=== PATIENT | female | born 1975 | race Caucasian/White ===

== ENCOUNTER 2018-02-02 14:55 | Emergency (ER) | payer OTHER ==
[~2018-02-02] VITALS: Ht 167.6 cm; Wt 68.0 kg
[~2018-02-02 14:55] MED LIST: ADVIL200 M1 PO; FLEXERIL10 MG PO; IBUPROFEN800 MG PO; NORCO 5-325 TA1 EACH PO; PERCOCET 5-3251 EACH PO; TYLENOL325 MG PO; ZOLOFT100 MG PO; ZOMIG5 MG PO; ZYRTEC10 MG PO
[2018-02-02] MEDS ORDERED: FLUOXETINE HCL20 MG PO (15:07)
[2018-02-02] MEDS ORDERED: DIAZEPAM5 MG PO (15:08)
[2018-02-02] MEDS ORDERED: HYDROCODON-ACE1 EAC8 PO (15:08)
[2018-02-02] MEDS ORDERED: PERCOCET 7.5-31 EACH PO (15:24)
[2018-02-02] MEDS ORDERED: METHYLPREDNISOLO4 M1 PO (15:24)
== END 2018-02-02 15:38 | disposition home or self-care (01) ==
LOC: ED 14:55
DX: S16.1XXA Strain of muscle, fascia and tendon at neck level, initial encounter (principal); M62.838 Other muscle spasm; F17.200 Nicotine dependence, unspecified, uncomplicated; Z88.8 Allergy status to other drugs, medicaments and biological substances; Z88.0 Allergy status to penicillin; Z88.1 Allergy status to other antibiotic agents; Z88.5 Allergy status to narcotic agent; Z79.899 Other long term (current) drug therapy; X58.XXXA Exposure to other specified factors, initial encounter; Y93.01 Activity, walking, marching and hiking
CPT/HCPCS: 99283

== ENCOUNTER 2022-11-29 11:04 | Emergency (ER) | payer OTHER ==
[~2022-11-29] VITALS: Ht 167.6 cm; Wt 76.2 kg
[~2022-11-29 11:04] MED LIST changes: +DIAZEPAM5 MG PO; +FLUOXETINE HCL20 MG PO; +HYDROCODON-ACE1 EAC8 PO; +METHYLPREDNISOLO4 M1 PO; +PERCOCET 7.5-31 EACH PO
[2022-11-29] MEDS ORDERED: NORTRIPTYLINE H50 MG PO (11:19)
[2022-11-29] MEDS ORDERED: CARVEDILOL6.25 MG PO (11:19)
[2022-11-29] MEDS ORDERED: BACLOFEN20 MG PO (11:20)
[2022-11-29] MEDS ORDERED: HYDROCODON-ACE1 EA11 PO (13:52)
== END 2022-11-29 14:01 | disposition home or self-care (01) ==
LOC: ED 11:04
DX: S13.9XXA Sprain of joints and ligaments of unspecified parts of neck, initial encounter (principal); W01.0XXA Fall on same level from slipping, tripping and stumbling without subsequent striking against object, initial encounter; F17.200 Nicotine dependence, unspecified, uncomplicated; Z88.0 Allergy status to penicillin; Z88.5 Allergy status to narcotic agent; Z88.8 Allergy status to other drugs, medicaments and biological substances; Z91.048 Other nonmedicinal substance allergy status; Z88.1 Allergy status to other antibiotic agents; Z79.899 Other long term (current) drug therapy
CPT/HCPCS: 72125; 96372; 99283-25; J1170